=== PATIENT | female | born 1965 | race Caucasian/White ===

== ENCOUNTER → 2019-05-09 | Outpatient (CLI) | payer OTHER | END | disposition home or self-care (01) ==

== ENCOUNTER → 2019-07-22 | Outpatient (CLI) | payer OTHER ==
--- NOTE | 2019-07-22 13:20 | US ---
EXAMINATION TYPE: US venous doppler duplex UE RT DATE OF EXAM: 07/22/2019 COMPARISON: NONE CLINICAL HISTORY: 54-year-old female S53.401D Unspecified sprain of right elbow, subseq. SIDE PERFORMED: Right TECHNIQUE: Grayscale, color doppler, spectral doppler imaging performed of the deep veins of the uppe r extremity. FINDINGS: There is normal flow, compressibility and vascular waveforms. Right Arm: Negative for DVT IMPRESSION: No evidence for DVT within the right upper extremity
== END | disposition home or self-care (01) ==
LOC: RADUSWWP 12:09
PROVIDERS: ATTEND Emergency Medicine
DX: S53.401D Unspecified sprain of right elbow, subsequent encounter (principal); S56.811D Strain of other muscles, fascia and tendons at forearm level, right arm, subsequent encounter; R20.9 Unspecified disturbances of skin sensation

== ENCOUNTER → 2021-10-18 | Outpatient (CLI) | payer OTHER ==
--- NOTE | 2021-10-18 10:19 | US ---
EXAMINATION TYPE: US venous doppler duplex LE RT DATE OF EXAM: 10/18/2021 10:12 AM COMPARISON: NONE CLINICAL HISTORY: R22.40 SWELLING, MASS AND LUMP. Right foot pain SIDE PERFORMED: Right TECHNIQUE: The lower extremity deep venous system is examined utilizing real time linear array sonog olimpia with graded compression, doppler sonography and color-flow sonography. VESSELS IMAGED: Common Femoral Vein Deep Femoral Vein Greater Saphenous Vein * Femoral Vein Popliteal Vein Small Saphenous Vein * Proximal Calf Veins (* superficial vessels) Right Leg: Appears negative for DVT IMPRESSION: 1. Right lower extremity ultrasound negative for deep venous thrombosis
== END | disposition home or self-care (01) ==
LOC: RADUSWWP 09:46
PROVIDERS: ATTEND Family Medicine
DX: R22.40 Localized swelling, mass and lump, unspecified lower limb (principal)